=== PATIENT | male | born 1990 | race Two or more races ===

== ENCOUNTER 2016-05-19 15:41 | Emergency (ER) | payer SELFPAY ==
[2016-05-19] MEDS ORDERED: DIPHENHYDRAMINE HCL 50 MG CAPSULE ONE (17:05)
[2016-05-19] MEDS ORDERED: IBUPROFEN 800 MG TABLET ONE (17:06)
[2016-05-19] MEDS ORDERED: ONDANSETRON 4 MG ODT TAB ONE (17:06)
== END 2016-05-19 18:30 | disposition home or self-care (01) ==
LOC: ED 15:41
DX: J11.1 Influenza due to unidentified influenza virus with other respiratory manifestations (principal); J02.9 Acute pharyngitis, unspecified
CPT/HCPCS: 87880; 87804; 99283 ×2; A9270 ×3